=== PATIENT | female | born 2000 | race Caucasian/White ===

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

== ENCOUNTER 2021-04-07 09:55 | Day surgery (SDC) | payer OTHER ==
[2021-04-07] MEDS ORDERED: Fentanyl 100 MCG/2 ML VIAL ONE ×2 (10:07→11:17)
[2021-04-07] MEDS ORDERED: Midazolam HCl 2 mg/2 ml Vial ONE (11:17)
[2021-04-07] MEDS ORDERED: EPINEPHrine 1 MG/ML AMP ONE (11:26)
[2021-04-07] MEDS ORDERED: Bupivacaine 0.25% HCL 30 ML VIAL ONE (11:26)
[2021-04-07] MEDS ORDERED: Ondansetron PF 4 MG/2 ML Vial ONE (11:28)
[2021-04-07] MEDS ORDERED: Lidocaine 1% PF 5 ML VIAL ONE (11:28)
[2021-04-07] MEDS ORDERED: Glycopyrrolate 0.2 MG/ML 5 ML SYRINGE ONE (11:28)
[2021-04-07] MEDS ORDERED: Rocuronium Bromide 10 MG/ML (10ML VIAL) ONE (11:28)
[2021-04-07] MEDS ORDERED: Ketorolac Tromethamine 30 MG/ML VIAL ONE (11:28)
[2021-04-07] MEDS ORDERED: PROPOFOL 200 MG/20 ML VIAL ONE (11:28)
[2021-04-07] MEDS ORDERED: Dexamethasone 20 MG/5 ML VIAL ONE (11:28)
[2021-04-07] MEDS ORDERED: Lidocaine 1% w/Epinephrine 1:100K 20 ML VIAL ONE (12:02)
[2021-04-07] MEDS ORDERED: Meperidine HCl/PF 25 MG/ML VIAL ONE (12:35)
== END 2021-04-07 15:00 | disposition home or self-care (01) ==
LOC: SDC 09:55
PROVIDERS: ATTEND Surgery
PROC: 0DTJ4ZZ Resection of Appendix, Percutaneous Endoscopic Approach (ICD-10-PCS; principal; 2021-04-07)
DX: K35.30 Acute appendicitis with localized peritonitis, without perforation or gangrene (principal); K38.8 Other specified diseases of appendix; K38.1 Appendicular concretions; M32.9 Systemic lupus erythematosus, unspecified
CPT/HCPCS: 88304; J0171; J1100; J1885; J2175; J2250; J2405; J2704; J3010; S0020

== ENCOUNTER 2022-06-26 17:13 | Emergency (ER) | payer OTHER ==
[~2022-06-26 17:13] MED LIST: Fentanyl 100 MCG/2 ML VIAL ONE; Iopamidol-370 76% 500 ML 1 ML ONE; Morphine 2 MG/ML VIAL ONE; Morphine 4 MG/ML VIAL ONE; Ondansetron PF 4 MG/2 ML Vial ONE; methylPREDNISolone Sod Succ/PF 125 MG/2 ML VIAL ONE
[2022-06-26] MEDS ORDERED: Ondansetron ODT 4 MG TAB ONE (17:53)
[2022-06-26] MEDS ORDERED: Ketorolac Tromethamine 30 MG/ML VIAL ONE (17:53)
[2022-06-26 17:56] LABS: #Lymphocytes 0.7 thou/uL (1.20-3.40); #Monocytes 0.2 thou/uL (0.11-0.59); #Neutrophils 6.5 thou/uL (1.40-6.50); %Lymphocytes 9.6 % (21.0-51.0); %Monocytes 2.6 % (0.0-10.0); %Neutrophils 87.8 % (42.0-75.0); Hemoglobin 14.2 g/dL (12.0-16.0); Mean Corpuscular HGB CONC 34.3 g/dL (32.0-36.0); Mean Corpuscular Hemoglobin 32.1 pg (27.0-31.0); Mean Corpuscular Volume 93.7 fl (78.0-98.0); Mean Platelet Volume 9.3 fL (7.4-10.4); Platelet Count 185 10x3/uL (130-400); RBC Distribution Width 11.9 % (11.5-14.5); Red Blood Cell (RBC) Count 4.42 mill/uL (4.20-5.40); White Blood Cell (WBC) Count 7.4 10x3/uL (4.8-10.8)
[2022-06-26 18:17] LABS: ALT (SGPT) 7 U/L (8-55); AST (SGOT) 12 U/L (5-34); Albumin 4.2 g/dL (3.5-5.0); Alkaline Phosphatase 66 U/L (40-110); Anion Gap 16 mmol/L (10-20); BUN (Urea Nitrogen) 8 mg/dL (7.0-18.7); Bilirubin, Total 0.5 mg/dL (0.2-1.2); Calc. Creatinine Clearance 0 mL/min (70-130); Calcium 8.8 mg/dL (7.8-10.44); Carbon Dioxide 19 mmol/L (22-29); Chloride 106 mmol/L (98-107); Estimated GFR 124; Glucose 82 mg/dL (70-105); Lipase 13 U/L (8-78); Protein, Total 7.2 g/dL (6.0-8.3); Sodium 137 mmol/L (136-145)
[2022-06-26] MEDS ORDERED: Morphine 4 MG/ML VIAL ONE (18:57)
[2022-06-26 20:25] LABS: Bacteria/HPF None Seen HPF (None Seen); Bilirubin Negative (Negative); Blood, Urine Negative (Negative); Clarity Clear (Clear); Glucose, Urine (Dipstick) Normal (Negative); Ketone, Urine 100 mg/dL (Negative); Leukocyte 75 Leu/uL (Negative); Nitrite Negative (Negative); Protein, Urine (Dipstick) 20 mg/dL (Neg-Trace); Specific Gravity, Urine 1.025 (1.002-1.036)
[2022-06-26 20:26] LABS: Pregnancy Test - Urine (BHCG) Negative (Negative); Pregu Control Background? CLEAR/WHITE (CLR/WHITE); Pregu Control Bar Appear? YES (CONTROL BAR); Specific Gravity 1.025 (1.002-1.036)
[2022-06-26 20:31] LABS: Amphetamine Detected (NotDetected); Barbiturates Screen Not Detected (NotDetected); Benzodiazepine Screen Not Detected (NotDetected); Cocaine Metabolite Screen Not Detected (NotDetected); Methadone Not Detected (NotDetected); Methamphetamine Detected (NotDetected); Opiate Screen Detected (NotDetected); Oxycodone Screen Not Detected (NotDetected); Phencyclidine (PCP) Not Detected (NotDetected); THC/Cannabinoid Screen Not Detected (NotDetected); Tricyclic Screen Not Detected (NotDetected)
== END 2022-06-26 21:56 | disposition home or self-care (01) ==
LOC: ERS 17:13
DX: N39.0 Urinary tract infection, site not specified (principal)
CPT/HCPCS: 36415; 74177; 80053; 80306; 81003; 81015; 81025; 83690; 85025; 96374; 96375; J1885; J2270; J2272; J2405; J2930; J3010; Q0162; Q9967